=== PATIENT | female | born 1985 | race Caucasian/White ===

== ENCOUNTER 2019-04-01 19:33 | Emergency (ER) | payer SELFPAY ==
[~2019-04-01] VITALS: Ht 165.1 cm; Wt 122.5 kg
[2019-04-01] MEDS ORDERED: SODIUM CHLORIDE 0.9% 1000ML 1,000 ML IV STA (20:10)
[2019-04-01 20:43] LABS: BASOPHILS % 0.5 % (0.0-1.0); EOSINOPHILS # (AUTO) 0.2 (0.0-0.4); EOSINOPHILS % 2.9 % (0.0-6.0); HEMATOCRIT 41.8 % (34.2-44.1); HEMOGLOBIN 13.3 g/dL (12.0-16.0); LYMPHOCYTES # (AUTO) 3.1 (1.0-3.2); LYMPHOCYTES % 37.9 % (18.0-39.1); MEAN CORPUSCULAR HEMOGLOBIN 28.9 pg (28-32); MEAN CORPUSCULAR HGB CONC 31.8 g/dL (31-35); MEAN CORPUSCULAR VOLUME 90.9 fL (81-99); MONOCYTES # (AUTO) 0.5 (0.2-0.8); MONOCYTES % 6.6 % (4.4-11.3); NEUTROPHILS # (AUTO) 4.3 (2.1-6.9); NEUTROPHILS % 51.9 % (38.7-80.0); PLATELET COUNT 330 x10e3/uL (140-360); RED CELL DISTRIBUTION WIDTH 12.9 % (11.7-14.4)
[2019-04-01 20:46] LABS: CLARITY,URINE SL CLOUDY (CLEAR); COLOR,URINE YELLOW (YELLOW); LEUKOCYTE ESTERASE ,URINE NEGATIVE (NEGATIVE); NITRITE,URINE NEGATIVE (NEGATIVE); PROTEIN,URINE DIPSTICK NEGATIVE (NEGATIVE); URINE UROBILINOGEN 0.2 mg/dL (0.2 - 1)
[2019-04-01 20:47] LABS: BILIRUBIN,URINE NEGATIVE (NEGATIVE); KETONES,URINE NEGATIVE (NEGATIVE); PREGNANCY TEST, URINE NEGATIVE (NEGATIVE)
[2019-04-01 20:58] LABS: INR 0.85; PROTHROMBIN TIME 12.1 seconds (11.9-14.5)
[2019-04-01 20:59] LABS: PARTIAL THROMBOPLASTIN TIME 28.8 seconds (23.8-35.5)
[2019-04-01 21:03] LABS: ALANINE AMINOTRANSFERASE 16 IU/L (0-55); ALBUMIN 3.4 g/dL (3.5-5.0); ALBUMIN/GLOBULIN RATIO 0.8 (0.8-2.0); ALKALINE PHOSPHATASE 56 IU/L (40-150); ANION GAP 11.5 mmol/L (8-16); BLOOD UREA NITROGEN 12 mg/dL (7-26); BUN/CREATININE RATIO 16 (6-25); CALCIUM 9.4 mg/dL (8.4-10.2); CARBON DIOXIDE 25 mmol/L (22-29); CHLORIDE 104 mmol/L (98-107); CREATINE KINASE 54 IU/L (29-168); CREATININE, SERUM 0.74 mg/dL (0.57-1.11); EST GLOMERULAR FILTRATION RATE > 60 ML/MIN (60-); GLUCOSE 95 mg/dL (74-118); POTASSIUM 3.5 mmol/L (3.5-5.1); SODIUM 137 mmol/L (136-145)
[2019-04-01 21:04] LABS: BACTERIA,URINE FEW /HPF; RBC,URINE 0-5 /HPF (0-5)
[2019-04-01 21:05] LABS: EPITHELIAL CELLS,URINE RARE /LPF
--- NOTE | 2019-04-01 22:36 | Diagnostic Imaging Report ---
Exam: Head CT without contrast History: Dizziness, passed out at work yesterday. Comparison studies: None Technique: Axial images were obtained from the skull base to the vertex. Coronal and sagittal images reconstructed from the axial data. Dose modulation, iterative reconstruction, and/or weight based adjustment of the mA/kV was utilized to reduce the radiation dose to as low as reasonably achievable. Radiation dose: Total DLP: 921 mGy*cm. Estimated effective dose: DLP x 0.015 Intravenous contrast: None Findings: Scalp: No abnormalities. Bones: No fractures, blastic or lytic lesions. Brain sulci: Appropriate for age. Ventricles: Normal in size and configuration. No hydrocephalus. Extra-axial spaces: No masses, no fluid collection. Parenchyma: No abnormal densities. No masses, acute hemorrhage, acute or chronic vascular insults. Sellar/suprasellar region: No abnormalities. Craniocervical junction: Patent foramen magnum. No Chiari one malformation. Included paranasal sinuses: Clear. Middle ear and mastoid cavities: Clear. IMPRESSION: No abnormalities. Signed by: Dr. Marvin Cook M.D. on 04/01/2019 10:33 PM
--- NOTE | 2019-04-01 23:04 | Diagnostic Imaging Report ---
EXAMINATION: CHEST SINGLE (PORTABLE) INDICATION: ^ERMD ORDER ^Y COMPARISON: None FINDINGS: AP view TUBES and LINES: None. LUNGS: Limited by body habitus. Lungs are well inflated. There is no evidence of pneumonia or pulmonary edema. PLEURA: No pleural effusion or pneumothorax. HEART AND MEDIASTINUM: The cardiomediastinal silhouette is unremarkable. BONES AND SOFT TISSUES: No acute osseous lesion. Soft tissues are unremarkable. UPPER ABDOMEN: No free air under the diaphragm. IMPRESSION: No acute thoracic abnormality. Signed by: Dr. Jeremiah Boo MD on 04/01/2019 11:01 PM
--- NOTE | 2019-04-01 23:10 | Diagnostic Imaging Report ---
EXAM: CT Abdomen and Pelvis WITH contrast INDICATION: ^ORDER PLACED BY MD COMPARISON: None. TECHNIQUE: Abdomen and pelvis were scanned utilizing a multidetector helical scanner from the lung base to the pubic symphysis after administration of IV contrast. Coronal and sagittal reformations were obtained. Dose modulation, iterative reconstruction, and/or weight based adjustment of the mA/kV was utilized to reduce the radiation dose to as low as reasonably achievable. Routine protocol was performed. Scan was performed when during portal venous phase. IV CONTRAST: 100 mL of Isovue-370 ORAL CONTRAST: None COMPLICATIONS: None RADIATION DOSE: Total DLP: 883.93 mGy*cm Estimated effective dose: (DLP x 0.015 x size factor) mSv CTDIvol has been reviewed. It is below the limits set by the Radiation Protocol Committee (RPC). FINDINGS: LINES and TUBES: None. LOWER THORAX: Unremarkable HEPATOBILIARY: No focal hepatic lesions. No biliary ductal dilation. GALLBLADDER: Contracted, limiting evaluation. No radio-opaque stones or sludge. No wall thickening. SPLEEN: No splenomegaly. PANCREAS: No focal masses or ductal dilatation. ADRENALS: No adrenal nodules KIDNEYS/URETERS: Kidneys enhance symmetrically. No hydronephrosis. No cystic or solid mass lesions. No stones. GI TRACT: No abnormal distention, wall thickening, or evidence of bowel obstruction. Appendix is normal. PELVIC ORGANS/BLADDER: Unremarkable. LYMPH NODES: No lymphadenopathy. VESSELS: Unremarkable. PERITONEUM / RETROPERITONEUM: No free air or fluid. BONES: Unremarkable. SOFT TISSUES: Unremarkable. IMPRESSION: 1. No acute inflammatory process in the abdomen/pelvis. Signed by: Dr. Jeremiah Boo MD on 04/01/2019 11:07 PM
[2019-04-01] MEDS ORDERED: SODIUM CHLORIDE 0.9% 50ML 50 ML ONE (23:15)
[2019-04-01] MEDS ORDERED: IOPAMIDOL 370 MG/ML 200 ML INFUS..BTL INJ ONE (23:15)
[2019-04-01 23:21] VITALS: BP 132/88
--- OUTSIDE RECORDS SUMMARY | 2019-04-05 12:59 | XMS REPORT ---
Author [facility] Address Unknown Phone Unavailable Care Team Providers Care Curriculum Development Manager Name Role Phone Luly ALEXIS Unavailable Unavailable Problems This patient has no known problems. Allergies, Adverse Reactions, Alerts This patient has no known allergies or adverse reactions. Medications This patient has no known medications. Results Test Description Test Time Test Comments Text Results Atomic Results Result Comments CT ABDOMEN/PELVIS W 2019-04-01 23:02:00 [place] [address] Patient Name: JAMAR CHAMBERS MR #: [id number] : 1985 Age/Sex: 34/F Req #: [id number] Adm Physician: Ordered by: ANTHONY LEMUS NP Report #: [id number] Location: ER Room/Bed: Procedure: [id number] CT/CT ABDOMEN/PELVIS W Exam Date: Exam Time: REPORT STATUS: Signed EXAM: CT Abdomen and Pelvis WITH contrast INDICATION: ORDER PLACED BY MD COMPARISON: None. TECHNIQUE: Abdomen and pelvis were scanned utilizing a multidetector helical scanner from the lung base to the pubic symphysis after administration of IV contrast. Coronal and sagittal reformations were obtained. Dose modulation, iterative reconstruction, and/or weight based adjustment of the mA/kV was utilized to reduce the radiation dose to as low as reasonably achievable. Routine protocol was performed. Scan was performed when during portal venous phase. IV CONTRAST: 100 mL of Isovue-370 ORAL CONTRAST: None COMPLICATIONS: None RADIATION DOSE: Total DLP: 883.93 mGy*cm Estimated effective dose: (DLP x 0.015 x size factor) mSv CTDIvol has been reviewed. It is below the limits set by the Radiation Protocol Committee (RPC). FINDINGS: LINES and TUBES: None. LOWER THORAX: Unremarkable HEPATOBILIARY: No focal hepatic lesions. No biliary ductal dilation. GALLBLADDER: Contracted, limiting evaluation. No radio-opaque stones or sludge. No wall thickening. SPLEEN: No splenomegaly. PANCREAS: No focal masses or ductal dilatation. ADRENALS: No adrenal nodules KIDNEYS/URETERS: Kidneys enhance symmetrically. No hydronephrosis. No cystic or solid mass lesions. No stones. GI TRACT: No abnormal distention, wall thickening, or evidence of bowel obstruction. Appendix is normal. PELVIC ORGANS/BLADDER: Unremarkable. LYMPH NODES: No lymphadenopathy. VESSELS: Unremarkable. PERITONEUM / RETROPERITONEUM: No free air or fluid. BONES: Unremarkable. SOFT TISSUES: Unremarkable. IMPRESSION: 1. No acute inflammatory process in the abdomen/pelvis. Signed by: Dr. Jeremiah Steiner MD on 04/01/2019 11:07 PM Dictated By: JEREMIAH STEINER MD 06 Transcribed By: LUZ on 04/01/192306 COPY TO: ANTHONY LEMUS NP CHEST SINGLE (PORTABLE) 2019-04-01 23:01:00 [place] [address] Patient Name: JAMAR CHAMBERS MR #: [id number] : 1985 Age/Sex: 34/F Req #: [id number] Adm Physician: Ordered by: ANTHONY LEMUS NP Report #: [id number] Location: ER Room/Bed: Procedure: [id number] DX/CHEST SINGLE (PORTABLE) Exam Date: Exam Time: REPORT STATUS: Signed EXAMINATION: CHEST SINGLE (PORTABLE) INDICATION: ERMD ORDER Y COMPARISON: None FINDINGS: AP view TUBES and LINES: None. LUNGS: Limited by body habitus. Lungs are well inflated. There is no evidence of pneumonia or pulmonary edema. PLEURA: No pleural effusion or pneumothorax. HEART AND MEDIASTINUM: The cardiomediastinal silhouette is unremarkable. BONES AND SOFT TISSUES: No acute osseous lesion. Soft tissues are unremarkable. UPPER ABDOMEN: No free air under the diaphragm. IMPRESSION: No acute thoracic abnormality. Signed by: Dr. Jeremiah Steiner MD on 04/01/2019 11:01 PM Dictated By: JEREMIAH STEINER MD 00 Transcribed By: LUZ on 04/01/192300 COPY TO: ANTHONY LEMUS NP CT BRAIN WO 2019-04-01 22:30:00 [place] [address] Patient Name: JAMAR CHAMBERS MR #: [id number] : 1985 Age/Sex: 34/F Req #: [id number] Adm Physician: Ordered by: ANTHONY LEMUS NP Report #: [id number] Location: ER Room/Bed: Procedure: [id number] CT/CT BRAIN WO Exam Date: Exam Time: REPORT STATUS: Signed Exam: Head CT without contrast History: Dizziness, passed out at work y esterday. Comparison studies: None Technique: Axial images were obtained from the skull base to the vertex. Coronal and sagittal images reconstructed from the axial data. Dose modulation, iterative reconstruction, and/or weight based adjustment of the mA/kV was utilized to reduce the radiation dose to as low as reasonably achievable. Radiation dose: Total DLP: 921 mGy*cm. Estimated effective dose: DLP x 0.015 Intravenous contrast: None Findings: Scalp: No abnormalities. Bones: No fractures, blastic or lytic lesions. Brain sulci: Appropriate for age. Ventricles: Normal in size and configuration. No hydrocephalus. Extra-axial spaces: No masses, no fluid collection. Parenchyma: No abnormal densities. No masses, acute hemorrhage, acute or chronic vascular insults. Sellar/suprasellar region: No abnormalities. Craniocervical junction: Patent foramen magnum. No Chiari one malformation. Included paranasal sinuses: Clear. Middle ear and mastoid cavities: Clear. IMPRESSION: No abnormalities. Signed by: Dr. Eve Cook M.D. on 04/01/2019 10:33 PM Dictated By: EVE COOK MD 32 Transcribed By: LUZ on 04/01/192232 COPY TO: ANTHONY LEMUS NP
== END 2019-04-01 23:33 | disposition home or self-care (01) ==
LOC: ER 19:33
DX: R42 Dizziness and giddiness (principal); R11.0 Nausea; R10.32 Left lower quadrant pain; R10.31 Right lower quadrant pain; Z87.19 Personal history of other diseases of the digestive system
CPT/HCPCS: 36415; 70450; 71045; 74177; 80053; 81001; 81025; 82550; 82553; 84484; 85025; 85610; 85730; 93005; 99284; Q9967